=== PATIENT | male | born 1955 | race African-American/Black ===

== ENCOUNTER 2017-03-13 07:20 | Inpatient (IN) ==
--- NOTE | 2017-03-08 13:10 | EKG Report ---
Stationary ECG Study [facility] Test Date: 03/08/2017 1:11:46 PM Pat Name: SAPPHIRE TORRES Department: Room: Gender: M Pension Administrator: KEENAN HAQUE : 1955 Requested by: John Menchaca Order Number: [id number] Reading MD: DENZEL VELA Intervals Morgan Rate: 62 P: 81 LA: 137 QRS: 85 QRSD: 102 T: 72 QT: 420 QTc: 425 Interpretive Statements SINUS [id number] VOLTAGE CRITERIA FOR LVH EARLY REPOLARIZATION Electronically Signed On 03-11-17 13:28:54 CDT by DENZEL VELA [email or web address]
[2017-03-08 13:11] LABS: Basophils % 0.4 % (0.0-0.8); Hematocrit 34.2 VOL% (42.0-52.0); Hemoglobin 11.6 GM/DL (14.0-18.0); Immature Granulocytes % 0.3 %; Immature Granulocytes Absolute 0.02 #; Lymphocytes # 2.8 10*3/uL (1.4-4.0); Lymphocytes % 35.6 % (21.2-54.2); Mean Corpuscular HGB Conc 33.9 GM/DL (32-36); Mean Corpuscular Hemoglobin 25 PG (27-34); Mean Corpuscular Volume 74.3 FL (87-102); Mean Platelet Volume 11.3 FL (9.6-12.0); Monocytes % 12.5 % (1.7-12.7); Neutrophils % 51.2 % (38.7-73.9); Platelet Count 215 T/CUMM (130-400); Red Cell Distribution Width 15.9 % (9.3-17.3); White Blood Count 7.9 T/CUMM (4-12)
[2017-03-08 13:46] LABS: Calcium 9.1 MG/DL (8.5-10.1); Osmolality,Calculated 277.4 MOS/KG (273-304)
[2017-03-13] MEDS ORDERED: MIDAZOLAM 2 MG/2 ML VIAL IV ONE (08:23)
[2017-03-13] MEDS ORDERED: DIAZEPAM 5 MG TABLET PO ONE ×2 (08:23)
[2017-03-13] MEDS ORDERED: fentaNYL 100 MCG/2 ML VIAL IV ONE (08:23)
--- NOTE | 2017-03-13 08:27 | IR History and Physical Update ---
IR Pre-Procedure - History and Physical H&P was reviewed, the patient examined and there: are no changes in the patients condition since last H&P was completed. Reason for procedure:: 61-year-old male, smoker, with severe bilateral peripheral arterial disease. Wrist pain. Chronic wound left foot. CT angiogram shows severe distal bilateral SFA, popliteal and tibial peroneal occlusive disease. Presents today for formal arteriogram with option to stent or angioplasty. - Dictation Physical: refer to scanned H&P - Physical Exam Vital Signs: Last Vital Signs Temp 99.7 F H 03/13/17 07:49 Pulse 82 03/13/17 07:49 Resp 18 03/13/17 07:49 BP 176/107 03/13/17 07:49 Pulse Ox 98 03/13/17 07:49 Mental Status: alert and oriented Extremity: other (Pulses bilateral feet. Both feet are warm and dry. Chronic wound lateral left forefoot.) Extremity: Present: capillary refill more than 3 seconds, warm, dry to touch Peripheral pulses: 0: Popliteal (R), Popliteal (L), Dorsalis Pedis (R), Dorsalis Pedis (L), Posterior Tibialis (R), Posterior Tibialis (L), 2+: Common Femoral (R), Common Femoral (L) Wounds: Lateral left foot adjacent to the fifth MTP joint. - Sedation IR anesthesia plan for sedation: minimal ASA Class: III - Risks Risks: Procedures explained. Risks discussed include, but not limited to, the following:[Pain, bleeding, thrombosis] All questions answered. The following alternatives were discussed:[None] Risks and benefits discussed with: patient Consent obtained from: patient Assessment and Plan - Time spent with patient Time spent with patient: Less than 30 minutes (1) Peripheral arterial disease Status: Chronic Assessment and plan: Plan abdominal aortogram with runoff. Possible stent or angioplasty, although the CT angiogram looks discouraging from a treatment standpoint. Current Visit: Yes
[2017-03-13] MEDS ORDERED: SODIUM CHLORIDE 0.45% 1,000 ML IV SCH (08:30)
[2017-03-13] MEDS ORDERED: ceFAZolin 1,000 MG VIAL ONE (08:39)
[2017-03-13] MEDS ORDERED: DIAZEPAM 5 MG TABLET ONE (08:39)
[2017-03-13] MEDS ORDERED: SODIUM CHLORIDE 0.9% 50 ML IV ONE (08:40)
[2017-03-13 08:55] LABS: PT Patient Result 10.9 SECS; Partial Thromboplastin Time 33.4 SECS (0-40)
[2017-03-13] MEDS ORDERED: HEPARIN/NACL 0.9% 2 UNITS/ML 2,000 ML IV ONE (10:46)
[2017-03-13] MEDS ORDERED: MIDAZOLAM 2 MG/2 ML VIAL ONE (10:55)
[2017-03-13] MEDS ORDERED: fentaNYL 100 MCG/2 ML VIAL ONE (10:55)
--- NOTE | 2017-03-13 11:43 | Post Interventional Procedure ---
Pre-op diagnosis: PAD Post-op diagnosis: same Procedure: Abdominal aortogram w/ BLE runoff Contrast: Visi 320, 110 cc Flouroscopy: 1.2 min Radiologist: Francisco Fierro Anesthesia: local, conscious sedation (versed 1 mg, fentanyl 50 mcg) Total Sedation Time: 1 min Specimens: none sent Estimated blood loss: none Complications: none Condition: stable Description/Findings: See radiology report. Assessment and Plan - Time spent with patient Time spent with patient: Less than 30 minutes (1) Peripheral arterial disease Status: Chronic Assessment and plan: Plan abdominal aortogram with runoff. Possible stent or angioplasty, although the CT angiogram looks discouraging from a treatment standpoint. A: Severe PAD, BLE SFA occlusions, Bilat popliteal artery occlusions Current Visit: Yes
--- NOTE | 2017-03-13 14:48 | Interventional Radiology Rpt ---
IR angio abdominal w serial, IR angio Ext BI Indication: Severe peripheral arterial disease, nonhealing wound lateral left foot, bilateral rest pain. Nonpalpable pulses in the popliteal arteries and further distal both feet. ABDOMINAL AORTOGRAM WITH BILATERAL LOWER EXTREMITY RUNOFF Description: A formal timeout was performed. Maximum sterile barrier technique used. The right groin was prepped and draped in a sterile fashion. 5 cc 1% lidocaine was injected. The right common femoral artery was accessed with micropuncture needle. Using Seldinger technique, a flush catheter was situated in the suprarenal abdominal aorta. Aortography was performed. The catheter was withdrawn to the aortic bifurcation and bilateral lower extremity runoff arteriograms performed. The catheter and sheath were removed. Hemostasis was achieved with successfully deployed Perclose device and manual compression. Patient tolerated the procedure well. Conscious sedation: Under physician supervision, Versed 1 mg, fentanyl 50 mcg were administered intravenously for conscious sedation. Vital signs, including pulse oximetry, heart rate and blood pressure, continuously monitored by nursing present in the room. Physicians spent 10 minutes [id number] sedation time with the patient. Contrast: Visipaque 320, 110 cc. Fluoroscopy: 1.2 minutes, 273 captured images. Impression: 1. No significant stenosis or aneurysmal change of the aorta, common iliac or external iliac arteries present. Irregular and eccentric plaque deposition at the origin of both common femoral arteries noted, resulting in maximum of 50% diameter stenosis. This narrowing extends into the ostium of both superficial femoral arteries, still estimated at 50% on the right but closer to 75% on the left. 2. There is chronic total occlusion of the distal right SFA at Luis's canal with some minimal reconstitution of the popliteal artery [id number], and then almost immediate reocclusion of popliteal artery at the level of the knee joint. In the right calf, the tibioperoneal trunk is occluded, and there is some mid calf reconstitution of the peroneal artery which then occludes above the ankle giving off small branch vessels to feed the foot. 3. Below Luis's canal, there is total occlusion of the left SFA with irregular filling of the ejdvp-etf-bndm popliteal artery, which also occludes above the knee joint. A large geniculate branch then bridges the knee joint and gives off small branches that fill a otherwise occluded tibioperoneal trunk. In the left calf, the peroneal artery is the only patent vessel after reconstitution via geniculate branches, and provides some inflow of the left foot. PROCEDURE INTERPRETED AT [facility] Final Report Signed by: Francisco Fierro M.D.
--- NOTE | 2017-03-13 17:34 | General Surgery Progress Note ---
Assessment and Plan (1) Ischemic rest pain of lower extremity Status: Acute Assessment and plan: Mr. Mojica is ischemic rest pain with bilateral severe peripheral vascular occlusive disease. I think it unlikely that we have any options that would provide revascularization Dr. Fierro and I are not impressed that we are likely to improve perfusion into the foot I have asked Dr. Valencia if he will review it and determine if he thinks that he has something offered. I discussed this with Mr. . Ms. Mojica and informed then and without revascularization that amputation is our only other option and that be offered when he feels he is ready to undergo that. We also discussed the other leg which is not really in any better shape other than just symptomatically it is not causing as much pain. Current Visit: Yes Subjective Patient reports: Present: other (Still with ischemic rest pain in the left foot. ) Exam - Constitutional Vitals: Period Temp Pulse Resp BP Sys/Luu Pulse Ox Last 24 Hr 98.4 F-99.7 F 80-102 15-20 159-213/89-118 94-100 General appearance: mild distress, under weight - Expanded Left Lower Neuro vascular tendon exam: Present: pulse deficit (Continues to show chronic ischemia of his left foot with ongoing wrist pain.) Results - Labs CBC & BMP: 03/08/17 13:00 03/08/17 13:00 - Diagnostic Findings Procedure: X-ray: pending (Arteriogram shows occlusion of the popliteal and tibial anterior tibial vessels there is a patent peroneal to the ankle but there does not appear to be significant runoff anywhere into the foot. Dr. Fierro did not feel that he had any options to offer for revascularization I am not enthused about a isolated bypass to the peroneal artery without collateral flow into the foot. I am asking Dr. Valencia to review it and determine if he thinks there is any options he has to offer on for revascularization standpoint. )
--- NOTE | 2017-03-14 09:44 | Event Note ---
Mr. Mojica continues to have ischemic rest pain in the left leg he does not have it on the right honestly I do not see much difference in the angiographic appearance of the right leg versus the left. Dr. Valencia is going to review the arteriogram and determine if he feels there is any hope of revascularization from his approach. If he is not able to improve the perfusion all I have reasonable to offer would be a below-knee amputation which based on the characteristics of the tissue of his lower leg I think has a reasonable chance of healing. Again I would not recommend that surgery until Mr. Mojica feels that it is the only option that he wants to take
--- NOTE | 2017-03-14 17:19 | Cardiology Consult Note ---
Assessment and Plan (1) Peripheral arterial disease Status: Chronic Assessment and plan: 1. 61-year-old BM recent smoker (quit 2 weeks ago by his report) with 2-3 years of worsening left calf claudication and nonhealing foot ulcer now with rest pain intermittently. 2. Agree with baby aspirin and high intensity statin therapy 3. I reviewed his films and he has bilateral diffuse severe disease including left popliteal occlusion with very poor runoff and diffuse tibial disease 4. Given the high likelihood he will need amputation without revascularization , will plan for angiography and attempt intervention on his left popliteal segment . I would defer to primary service whether to keep in the hospital order letting go and bring him back . I discussed with the patient the risks and benefits of peripheral angiography and intervention including but not limited to: , stroke, heart attack, vascular damage, reaction to medicine or dye, bleeding requiring blood transfusion, failure of the procedure, and the possible need for planned or emergency surgery. I have answered all the patient's questions regarding the procedure, and the patient is agreeable to proceed. Current Visit: Yes (2) Ischemic rest pain of lower extremity Status: Acute Current Visit: Yes History of Present Illness - Consult Narrative History of present illness: Mr. Mojica is a 61 year old male who reports having an ulcer on his left lateral foot for 2-3 years. He has had claudication pain on the left during that time as well, but is worsening. He now has some rest pain and get some relief with hanging his leg down. He reports that it throbs when he stands for too long. Angiography showed popliteal occlusion with diffuse severe tibial disease and very poor runoff on the left. CC: John Menchaca MD - Home Medications and Allergies Home Medications: Home Medications Medication Instructions Recorded Confirmed Type Atorvastatin [Lipitor] 40 mg PO BEDTIME 03/10/17 03/13/17 History Cilostazol [Pletal] 50 mg PO BID 03/10/17 03/13/17 History HYDROcodone/ACETAMIN 7.5-325 1 tablet PO Q6HR PRN 03/10/17 03/13/17 History [[place] 7.5-325] amLODIPine [Norvasc] 10 mg PO DAILY 03/10/17 03/13/17 History hydroCHLOROthiazide 25 mg PO DAILY 03/10/17 03/13/17 History [Hydrochlorothiazide] Allergies/Adverse Reactions: Allergies Allergy/AdvReac Type Severity Reaction Status Date / Time No Known Allergies Allergy Verified 03/13/17 07:40 Medical,Surgical,& Family Hx - Medical History Cardio: History of: Hypertension, PVD (03/13/17 AF Arteriogram) Neurology: No history of: Seizures HEENT: No history of: Eye Problem, Dental Problems Endocrine: History of: Dyslipidemia Respiratory: No history of: Respiratory Problems (No Flu Vac) Other: History of: Skin Problems (Non Healing Wound Lt Foot) No history of: Anesthesia Reactions - Surgical History Cardiac Surgeries: Sugical HX of: Femoral-Popliteal Bypass Graft HEENT Surgeries: Patient denies: Eye Surgery, Tonsilectomy & Adenoidectomy - Social History Smoking Status: Current every day smoker Frequency of Alcohol Use: Frequently Type of Drug Use: Unknown Physical Examination Vital Signs Temp Pulse Resp BP Pulse Ox 99.7 F H 82 18 176/107 98 03/13/17 07:49 03/13/17 07:49 03/13/17 07:49 03/13/17 07:49 03/13/17 07:49 General: Present: No Apparent Distress, Cachectic Cardiac: Present: Reg Rate and Rhythm. Absent: Diastolic Murmur, Gallop Lungs: Present: Normal Breath Sounds. Absent: Bibasilar Rales Abdomen: Present: Soft Extremities: Present: Other (Absent pedal pulse with small tender ulcer left lateral foot plantar aspect.). Absent: Edema Result/EKG - Labs CBC & BMP: 03/08/17 13:00 03/08/17 13:00
[2017-03-14 18:09] LABS: Basophils % 0.2 % (0.0-0.8); Hematocrit 31.6 VOL% (42.0-52.0); Hemoglobin 10.8 GM/DL (14.0-18.0); Immature Granulocytes % 0.2 %; Immature Granulocytes Absolute 0.02 #; Lymphocytes # 1.6 10*3/uL (1.4-4.0); Lymphocytes % 17.9 % (21.2-54.2); Mean Corpuscular HGB Conc 34.2 GM/DL (32-36); Mean Corpuscular Hemoglobin 25 PG (27-34); Mean Corpuscular Volume 73.3 FL (87-102); Monocytes # 1.5 10*3/uL (0.11-0.8); Monocytes % 16.3 % (1.7-12.7); Neutrophils # 5.9 10*3/uL (1.4-7.4); Neutrophils % 65.4 % (38.7-73.9); Platelet Count 243 T/CUMM (130-400); Red Blood Count 4.31 MC/CUMM (3.8-5.5); Red Cell Distribution Width 14.7 % (9.3-17.3)
[2017-03-14 18:24] LABS: INR 1.1; Partial Thromboplastin Time 34.6 SECS (0-40)
[2017-03-14 18:28] LABS: Eosinophils 1 % (0-10); Lymphocytes 13 % (20-55); Segmented Neutrophils 67 % (50-85); Total Cells Counted 100
[2017-03-14 18:29] LABS: Hypochromasia Slight; Platelet Estimate Adequate; Target Cells Few
[2017-03-14 18:44] LABS: Alanine Aminotransferase 12 U/L (16-61); Albumin 2.9 G/DL (3.4-5.0); Alkaline Phosphatase 135 U/L (45-117); Aspartate Amino Transferase 14 U/L (0-37); Bilirubin,Total < 0.39 MG/DL (0.2-1.0); Blood Urea Nitrogen 9 MG/DL (7-18); Calcium 8.6 MG/DL (8.5-10.1); Glucose 116 MG/DL (74-106); Osmolality,Calculated 274.7 MOS/KG (273-304); Potassium 3.4 MMOL/L (3.5-5.1); Sodium 138 MMOL/L (136-145); Total Protein 6.5 G/DL (6.4-8.3)
--- NOTE | 2017-03-15 09:33 | Event Note ---
Mr. Mojica has continued ischemic rest pain and Dr. Valencia is going to try to improve perfusion tomorrow with atherectomy and possible distal angioplasty.
[2017-03-15] MEDS ORDERED: ENOXAPARIN 40 MG/0.4 ML SYRINGE SUBCUT SCH ×2 (15:30)
[2017-03-15] MEDS ORDERED: POTASSIUM CHLORIDE RIDER 10 MEQ in PREMIX 1 EACH IV PRN (16:52)
[2017-03-15] MEDS ORDERED: MAGNESIUM SULF RIDER 2 GM in PREMIX 1 EACH IV PRN (16:52)
[2017-03-15] MEDS ORDERED: ASPIRIN CHEW 81 MG TABLET PO ONE (16:56)
[2017-03-15] MEDS: ROSUVASTATIN 20 MG TABLET PO SCH (21:43)
[2017-03-16] MEDS ORDERED: DIAZEPAM 5 MG TABLET PO ONE (06:00)
[2017-03-16] MEDS ORDERED: diphenhydrAMINE CAP 25 MG CAPSULE PO ONE (06:00)
[2017-03-16] MEDS ORDERED: LIDOCAINE 1% 20 ML VIAL ONE (07:49)
--- NOTE | 2017-03-16 07:55 | Event Note ---
Late entry: I examined and interviewed Mr. Mojica on March 15, 2017 but did not document the note. At that time his clinical status was unchanged still having pain in his foot and lower leg intermittently at rest with left foot ulcer. I again discussed with him the logistics of angiography and attempted percutaneous intervention on his diffusely diseased/occluded left distal SFA/pedal vessels. I answered all his questions were the procedure. General: Thin BM no acute distress alert and oriented HEENT: Supple without JVD CV: Regular rhythm and rate Respiratory: Clear to auscultation with some increased expiratory phase Abdomen: Nontender Extremities: No edema with absent pedal pulse, left foot edema with lateral ulcer. Impression: Critical limb ischemia with left distal SFA/popliteal occlusion and very poor runoff with suggestion of diffuse severe tibial disease Recommendations: Angiography March 08, 2017 a.m. with attempt intervention/ probable laser atherectomy from right femoral approach possibly with left pedal access.
[2017-03-16] MEDS ORDERED: HYDROmorphone 2 MG/1 ML VIAL ONE (08:05)
[2017-03-16] MEDS ORDERED: MIDAZOLAM 2 MG/2 ML VIAL ONE (08:09)
[2017-03-16] MEDS ORDERED: HEPARIN 5,000 UNIT/1 ML VIAL ONE (08:14)
[2017-03-16] MEDS: ASPIRIN CHEW 81 MG TABLET PO SCH (09:08)
--- NOTE | 2017-03-16 13:58 | Event Note ---
We have been unable to revascularize Mr. Mojica left lower leg and he persists with significant ischemic rest pain that has been ongoing for weeks and a nonhealing ulcer of the left foot. I discussed this in detail with Mr. Mojica his daughter and sister explaining the nature of the ischemic disease and the treatment options available. I believe there is a reasonable hope for below -knee amputation healing based on the quality of the skin and muscle in that area. I have explained to him the potential for nonhealing falling postoperatively the need for rehab and the time involved in obtaining a below- knee prosthesis. And I gave the option of delay with continued wound care but offered no reasonable hope of improvement in pain or healing of the ulcer. He understands the risk of nonhealing infection and bleeding which he understands and accepts wishes to proceed with surgery tomorrow and I will schedule a left below-knee amputation for tomorrow
[2017-03-16] MEDS: ROSUVASTATIN 20 MG TABLET PO SCH (20:47)
[2017-03-17] MEDS: LACTATED RINGERS 1,000 ML IV SCH ×3 (08:15→19:48)
[2017-03-17] MEDS ORDERED: VANCOMYCIN 500 MG VIAL ONE (08:26)
[2017-03-17] MEDS ORDERED: ceFAZolin 1,000 MG VIAL ONE (08:55)
[2017-03-17] MEDS: ASPIRIN CHEW 81 MG TABLET PO SCH (10:11)
--- NOTE | 2017-03-17 10:18 | Operative Note ---
Date of procedure: 03/17/17 Procedure: Dr. Menchaca operative report clearance Yunior. Surgeon: Nikolai Anesthesia: Garry epidural and MAC Preoperative diagnosis: On ischemic gangrene of left foot Postoperative diagnosis: Same Procedure: Left below-knee amputation Indications for the procedure: Mr. Mojica is a 61-year-old man with ischemic gangrene chronic ischemic pain of the left foot we have been unable to provide any revascularization I have offered below-knee amputation of explained the alternatives risks and complications which he understands and accepts Description of the procedure: Patient received epidural anesthesia and sedation his left leg is prepped with ChloraPrep and draped in the standard fashion leg is marked for posterior flap type of below-knee amputation skin incision is made with scalpel cautery was used to divide muscle bundles in the anterior tibial compartment and somewhat of the medial compartment reciprocating saw was used to divide the fibula approximately an inch higher than the tibia tibias divided smoothed the posterior flap was completed with a large amputation knife. There is minimal bleeding from the popliteal and peroneal arteries modestly bleeding these are controlled with 020 silks ligatures the muscle level however shows good perfusion and contraction the muscle was trimmed somewhat leg is irrigated the posterior fascia and anterior fascia are brought together with interrupted 0 Vicryl running 2-0 Monocryl was used to close the subcu skin clips used to close skin there is no tension on the flap it about appears to be well perfused posterior splint is applied blood loss is approximately 200 cc sponge needle and sponge counts correct and the patient taken to recovery in stable condition Surgeon / Physician: John Menchaca Results - Labs CBC & BMP: 03/14/17 17:51 03/14/17 17:51 Discharge Plan - Discharge Medications No Action hydroCHLOROthiazide [Hydrochlorothiazide] 25 mg PO DAILY Cilostazol [Pletal] 50 mg PO BID Atorvastatin [Lipitor] 40 mg PO BEDTIME amLODIPine [Norvasc] 10 mg PO DAILY HYDROcodone/ACETAMIN 7.5-325 [[place] 7.5-325] 1 tablet PO Q6HR PRN PRN Reason: Pain - Follow Up or Referral - Forms/Instructions
[2017-03-17] MEDS ORDERED: ONDANSETRON 4 MG/2 ML VIAL IV PRN ×2 (10:21→10:34)
[2017-03-17] MEDS ORDERED: BISACODYL 5 MG TABLET PO PRN (10:21)
[2017-03-17] MEDS ORDERED: diphenhydrAMINE 50 MG/1 ML VIAL IV PRN (10:34)
[2017-03-17] MEDS ORDERED: KETOROLAC 60 MG/2 ML VIAL IM ONE (10:34)
[2017-03-17] MEDS ORDERED: diphenhydrAMINE CAP 25 MG CAPSULE PO PRN (10:34)
[2017-03-17] MEDS ORDERED: fentaNYL 100 MCG/2 ML VIAL ONE (10:43)
[2017-03-17] MEDS ORDERED: MIDAZOLAM 2 MG/2 ML VIAL ONE (10:44)
[2017-03-17] MEDS ORDERED: LIDOCAINE MPF 2% /EPI 20 ML VIAL ONE (10:44)
[2017-03-17] MEDS: fentaNYL 2 MCG/ROPIV 0.2% EPID 150 ML EPIDURAL SCH (11:39)
[2017-03-17] MEDS: amLODIPine 10 MG TABLET PO SCH (12:08)
[2017-03-17] MEDS: KETOROLAC 10 MG TABLET PO PRN (12:08)
[2017-03-17] MEDS: CILOSTAZOL 50 MG TABLET PO SCH ×2 (12:09→21:44)
[2017-03-17 13:36] LABS: Basophils % 0.2 % (0.0-0.8); Hematocrit 28.8 VOL% (42.0-52.0); Hemoglobin 9.7 GM/DL (14.0-18.0); Immature Granulocytes % 0.3 %; Immature Granulocytes Absolute 0.03 #; Lymphocytes # 1.8 10*3/uL (1.4-4.0); Lymphocytes % 15.6 % (21.2-54.2); Mean Corpuscular HGB Conc 33.7 GM/DL (32-36); Mean Corpuscular Hemoglobin 25 PG (27-34); Mean Corpuscular Volume 73.1 FL (87-102); Mean Platelet Volume 10.8 FL (9.6-12.0); Monocytes # 1.8 10*3/uL (0.11-0.8); Monocytes % 15.7 % (1.7-12.7); Neutrophils # 7.9 10*3/uL (1.4-7.4); Neutrophils % 68.2 % (38.7-73.9); Platelet Count 326 T/CUMM (130-400); Red Blood Count 3.94 MC/CUMM (3.8-5.5); White Blood Count 11.5 T/CUMM (4-12)
[2017-03-17 13:54] LABS: Calcium 8.5 MG/DL (8.5-10.1); Magnesium 1.4 MG/DL (1.8-2.4); Potassium 3.4 MMOL/L (3.5-5.1)
--- NOTE | 2017-03-17 14:21 | Anesthesia Post-Op ---
Anesthesia Post OP - Post Ansesthetic Evaluation Patient seen in post op: Yes Resp: within normal limits CV: within normal limits Mental: within normal limits Temp: within normal limits Jmgw-Rf-Zmpvkdbss: within normal limits Nausea and Vomiting: within normal limits Pain: within normal limits
--- NOTE | 2017-03-17 15:17 | Cardiology Progress Note ---
Assessment and Plan (1) Peripheral arterial disease Status: Chronic Assessment and plan: 1. 61-year-old BM recent smoker (quit 2 weeks ago by his report) with 2-3 years of worsening left calf claudication and nonhealing foot ulcer now with rest pain intermittently. 2. Agree with baby aspirin and high intensity statin therapy 3. I reviewed his films and he has bilateral diffuse severe disease including left popliteal occlusion with very poor runoff and diffuse tibial disease 4. Given the high likelihood he will need amputation without revascularization , will plan for angiography and attempt intervention on his left popliteal segment . I would defer to primary service whether to keep in the hospital order letting go and bring him back . I discussed with the patient the risks and benefits of peripheral angiography and intervention including but not limited to: , stroke, heart attack, vascular damage, reaction to medicine or dye, bleeding requiring blood transfusion, failure of the procedure, and the possible need for planned or emergency surgery. I have answered all the patient's questions regarding the procedure, and the patient is agreeable to proceed. March 17, 2017: 1. 61-year-old recent smoker status post left BKA this morning doing well clinically. 2. His right groin excised is without bleeding bruit or hematoma, he will need to avoid squatting strain or lifting for the next 6 days. 3. Is reasonable to put him back on his Lipitor 40 as he has a supply of those and will follow up with [facility]. 4. Agree with continuing baby aspirin. 5. Hemodynamic is stable with normal creatinine noted this morning and mild drop in hematocrit postoperatively. 6. As he has follow-up with Dr. Menchaca, I will be happy to see him on an as- needed basis; I will sign off. Current Visit: Yes (2) Ischemic rest pain of lower extremity Status: Acute Current Visit: Yes Cardiology - PN: Subj Interval history: Mr. Mojica is no complaints after his surgery. He has no chest discomfort or shortness of breath. He has no complaints his right groin access site. He has not had any bleeding. Exam (Progress Note) - Constitutional Vitals: Period Temp Pulse Resp BP Sys/Luu Pulse Ox Last 24 Hr 98.2 F-99.6 F 77-112 16-18 104-137/63-85 95-100 General appearance: no acute distress, under weight - Head Head exam: Present: normal inspection, normocephalic, atraumatic - Neck Neck exam: Present: normal inspection - Respiratory Respiratory exam: Present: clear to auscultation bilaterally - Cardiovascular Cardiovascular exam: Present: regular rate and rhythm. Absent: diastolic murmur , rubs - GI/Abdominal GI/Abdominal exam: Present: soft. Absent: tenderness - Extremities Exam Extremities exam: Present: other (And his left lower extremity status post amputation). Absent: edema Result/EKG - Labs CBC & BMP: 03/17/17 13:27 03/17/17 13:27 Labs: Laboratory Results - last 24 hr 03/17/17 03/17/17 13:27 13:27 WBC 11.5 RBC 3.94 Hgb 9.7 L Hct 28.8 L MCV 73.1 L MCH 25 L MCHC 33.7 RDW 14.0 Plt Count 326 D MPV 10.8 Neut % (Auto) 68.2 Lymph % (Auto) 15.6 L [place] % (Auto) 15.7 H Eos % (Auto) 0.0 Baso % (Auto) 0.2 Neut # (Auto) 7.9 H Lymph # (Auto) 1.8 [place] # (Auto) 1.8 H Eos # (Auto) 0.0 Baso # (Auto) 0.0 Immature Gran % 0.3 Nucleated RBC % 0.0 Immature Gran # 0.03 Nucleated RBCs # 0.00 Immature Plt Fraction 0.0 Sodium 136 Potassium 3.4 L Chloride 100 Carbon Dioxide 31 Anion Gap 8.4 BUN 10 Creatinine 0.70 GFR Calculation 115 BUN/Creatinine Ratio 14.00 Glucose 118 H Calculated Osmolality 271.0 L Calcium 8.5 Magnesium 1.4 L Quality Measures - VTE Contraindication to Pharmacological VTE Prophylaxis: Continuous Epidural Infusion
[2017-03-17 16:05] LABS: Lymphocytes 19 % (20-55); Microcytosis 1+; Ovalocytes Few; Platelet Estimate Normal; Poikilocytosis 1+; Segmented Neutrophils 71 % (50-85); Target Cells Few; Tear Drop Cells Few; Total Cells Counted 100
[2017-03-17] MEDS ORDERED: KETOROLAC 30 MG/1 ML VIAL IM PRN (17:00)
[2017-03-17] MEDS: ROSUVASTATIN 20 MG TABLET PO SCH (21:44)
[2017-03-17] MEDS: ATORVASTATIN 40 MG TABLET PO SCH (21:44)
[2017-03-18 02:14] LABS: Basophils % 0.2 % (0.0-0.8); Hematocrit 27.6 VOL% (42.0-52.0); Hemoglobin 9.4 GM/DL (14.0-18.0); Immature Granulocytes % 0.4 %; Immature Granulocytes Absolute 0.05 #; Lymphocytes # 1.9 10*3/uL (1.4-4.0); Lymphocytes % 13.8 % (21.2-54.2); Mean Corpuscular HGB Conc 34.1 GM/DL (32-36); Mean Corpuscular Hemoglobin 25 PG (27-34); Mean Corpuscular Volume 72.4 FL (87-102); Mean Platelet Volume 11.8 FL (9.6-12.0); Monocytes # 2.1 10*3/uL (0.11-0.8); Monocytes % 14.8 % (1.7-12.7); Neutrophils # 9.8 10*3/uL (1.4-7.4); Neutrophils % 70.8 % (38.7-73.9); Platelet Count 322 T/CUMM (130-400); Red Blood Count 3.81 MC/CUMM (3.8-5.5); Red Cell Distribution Width 14.1 % (9.3-17.3); White Blood Count 13.9 T/CUMM (4-12)
[2017-03-18 02:39] LABS: Calcium 8.3 MG/DL (8.5-10.1); Osmolality,Calculated 272.8 MOS/KG (273-304); Potassium 3.8 MMOL/L (3.5-5.1)
[2017-03-18] MEDS: LACTATED RINGERS 1,000 ML IV SCH (04:01)
[2017-03-18] MEDS: fentaNYL 2 MCG/ROPIV 0.2% EPID 150 ML EPIDURAL SCH ×2 (05:49→23:22)
[2017-03-18] MEDS: PANTOPRAZOLE 40 MG TABLET PO SCH (09:39)
[2017-03-18] MEDS: CILOSTAZOL 50 MG TABLET PO SCH ×2 (09:39→20:14)
[2017-03-18] MEDS: ASPIRIN CHEW 81 MG TABLET PO SCH (09:39)
[2017-03-18] MEDS: amLODIPine 10 MG TABLET PO SCH (09:39)
--- NOTE | 2017-03-18 10:38 | Event Note ---
Status post left BKA. No complaints. The dressing is dry and intact. White blood cell count 13.9. No changes. Continue current care.
--- NOTE | 2017-03-18 12:23 | Event Note ---
Epidural Management day #2 Pt without complaints at present. Comfortable. C/o generalized itching during night, resolved at present. Epidural infusing without complications.
[2017-03-18] MEDS: ATORVASTATIN 40 MG TABLET PO SCH (20:14)
[2017-03-18] MEDS: ROSUVASTATIN 20 MG TABLET PO SCH (20:14)
[2017-03-18] MEDS: KETOROLAC 10 MG TABLET PO PRN (22:50)
[2017-03-19] MEDS: PANTOPRAZOLE 40 MG TABLET PO SCH (09:29)
[2017-03-19] MEDS: CILOSTAZOL 50 MG TABLET PO SCH ×2 (09:29→20:52)
[2017-03-19] MEDS: ASPIRIN CHEW 81 MG TABLET PO SCH (09:29)
[2017-03-19] MEDS: amLODIPine 10 MG TABLET PO SCH (09:32)
[2017-03-19] MEDS: LACTATED RINGERS 1,000 ML IV SCH ×2 (09:33→12:56)
--- NOTE | 2017-03-19 11:12 | Event Note ---
T-max 102.4. Vital signs stable. Patient says he is doing very well. He has no complaints. He is tolerating a diet. He has no nausea or vomiting. His stump dressing is clean and dry. White blood cell count yesterday was slightly elevated. Will recheck CBC in the morning.
[2017-03-19] MEDS: fentaNYL 2 MCG/ROPIV 0.2% EPID 150 ML EPIDURAL SCH (12:56)
--- NOTE | 2017-03-19 13:40 | Anesthesia Post-Op ---
Anesthesia Post OP - Post Ansesthetic Evaluation Patient seen in post op: Yes Resp: within normal limits CV: within normal limits Mental: within normal limits Temp: within normal limits Iexh-Ig-Wavdevfzl: within normal limits Nausea and Vomiting: within normal limits Pain: within normal limits Other:: follow up on day [address] for post-op pain control. pt pain is controlled. catheter site has no redness or edema.
[2017-03-19] MEDS: ROSUVASTATIN 20 MG TABLET PO SCH (20:52)
[2017-03-19] MEDS: ATORVASTATIN 40 MG TABLET PO SCH (20:52)
[2017-03-20 05:56] LABS: Basophils % 0.2 % (0.0-0.8); Hematocrit 25.9 VOL% (42.0-52.0); Hemoglobin 8.9 GM/DL (14.0-18.0); Immature Granulocytes % 0.4 %; Immature Granulocytes Absolute 0.05 #; Lymphocytes # 2.2 10*3/uL (1.4-4.0); Lymphocytes % 15.9 % (21.2-54.2); Mean Corpuscular HGB Conc 34.4 GM/DL (32-36); Mean Corpuscular Hemoglobin 25 PG (27-34); Mean Corpuscular Volume 71.5 FL (87-102); Mean Platelet Volume 11.7 FL (9.6-12.0); Monocytes # 2.4 10*3/uL (0.11-0.8); Monocytes % 17.4 % (1.7-12.7); Neutrophils # 9.2 10*3/uL (1.4-7.4); Neutrophils % 66.1 % (38.7-73.9); Platelet Count 388 T/CUMM (130-400); Red Blood Count 3.62 MC/CUMM (3.8-5.5); Red Cell Distribution Width 14.1 % (9.3-17.3); White Blood Count 13.9 T/CUMM (4-12)
[2017-03-20 06:40] LABS: Elliptocytes Few; Eosinophils 2 % (0-10); Giant Platelets Few; Hypochromasia 1+; Lymphocytes 18 % (20-55); Platelet Estimate Adequate; Segmented Neutrophils 62 % (50-85); Target Cells Few; Total Cells Counted 100
[2017-03-20 06:41] LABS: Microcytosis Slight
[2017-03-20] MEDS: amLODIPine 10 MG TABLET PO SCH (08:48)
[2017-03-20] MEDS: ASPIRIN CHEW 81 MG TABLET PO SCH (08:48)
[2017-03-20] MEDS: CILOSTAZOL 50 MG TABLET PO SCH ×2 (08:48→20:18)
[2017-03-20] MEDS: PANTOPRAZOLE 40 MG TABLET PO SCH (08:48)
[2017-03-20] MEDS ORDERED: HYDROmorphone 2 MG/1 ML VIAL IV PRN ×2 (10:23)
--- NOTE | 2017-03-20 10:27 | Event Note ---
Mr. Mojica is run fever over the weekend and I taken down his wound dressing today and it actually looks quite good there is no sign of ischemia erythema induration or infection of significant drainage. He does not appear to be any in any distress. I am going to go ahead and remove the epidural and will continue to work toward physical therapy. He has not had a Francois catheter so there is not much risk of infection there.
--- NOTE | 2017-03-20 11:56 | Event Note ---
Epidural removed with blue tip intact, pt. tolerated well
[2017-03-20] MEDS: ZALEPLON 5 MG CAPSULE PO PRN (20:18)
[2017-03-20] MEDS: ROSUVASTATIN 20 MG TABLET PO SCH (20:19)
[2017-03-20] MEDS: ATORVASTATIN 40 MG TABLET PO SCH (20:19)
[2017-03-21] MEDS: ASPIRIN CHEW 81 MG TABLET PO SCH (08:17)
[2017-03-21] MEDS: amLODIPine 10 MG TABLET PO SCH (08:18)
[2017-03-21] MEDS: CILOSTAZOL 50 MG TABLET PO SCH ×2 (08:18→20:22)
[2017-03-21] MEDS: PANTOPRAZOLE 40 MG TABLET PO SCH (08:18)
--- NOTE | 2017-03-21 09:20 | Pathology Report from [facility] ---
[facility] [place] [id number] PATIENT NAME : Jr. Torres Clarence ORDERING DR : ANT LEONARD MD CLINICAL HX: Severe PAD, bilateral; chronic wound LT foot POST-OP DX: Same SPECIMEN INFO: LT B-K GROSS DESCRIPTION: Received fresh labeled SAPPHIRE TORRES is a 37.0 cm left leg below the knee amputation. The skin is brown and hairless with a 0.7 x 0.5 cm ulceration noted along the lateral side of the 5th toe. The posterior tibial artery is focally atherosclerotic and markedly calcified. Sections submitted A- Artery following decalcification, B-Ulcer. DIAGNOSIS FOR SAPPHIRE TORRES JR.: LEG, LEFT, [id number] AMPUTATION: Gangrene secondary to atherosclerotic vascular disease. COLLECTED DATE: 03/17/2017 [facility] [place]: 03/20/2017 ELECTRONICALLY SIGNED BY: Wayne Black III, M.D. 03/20/2017 - 11:04:45 PRIMO
--- NOTE | 2017-03-21 10:53 | Event Note ---
Mr. Mojica is afebrile heart rate is come down he is doing well and can go to [facility] rehab when he desires has some clear serosanguineous drainage from the BKA stump the stump looks good with no sign of infection.
[2017-03-21] MEDS: ROSUVASTATIN 20 MG TABLET PO SCH (20:21)
[2017-03-21] MEDS: ZALEPLON 5 MG CAPSULE PO PRN (20:22)
[2017-03-21] MEDS: ATORVASTATIN 40 MG TABLET PO SCH (20:22)
[2017-03-22] MEDS: ASPIRIN CHEW 81 MG TABLET PO SCH (09:01)
[2017-03-22] MEDS: CILOSTAZOL 50 MG TABLET PO SCH (09:01)
[2017-03-22] MEDS: PANTOPRAZOLE 40 MG TABLET PO SCH (09:01)
[2017-03-22] MEDS: amLODIPine 10 MG TABLET PO SCH (09:01)
--- NOTE | 2017-03-22 11:21 | Discharge Summary ---
Hospital Course - Hospital Course Hospital Course: Albert Mojica was admitted with ischemic rest pain extremely poor perfusion of his left lower extremity and a nonhealing ulcer we attempted endovascular approaches for revascularization and none were feasible there was no reasonable hope of surgical intervention for revascularization. He underwent a left below- knee amputation late last week had fever over the weekend but on review of the wound there is no active infection there fever has resolved he is doing well with initial rehab. He is ready for transfer to [facility] and continues rehabilitation and plan for a prosthesis in the future. I discussed with Mr. Mojica and his sister on several occasions the long-term plan potential complications and that I would continue to follow him at time [facility]. Understanding is that they are ready for him to transfer today. Diagnosis - Discharge Diagnosis (1) Ischemic rest pain of lower extremity Status: Acute Discharge Plan - Discharge Data Disposition: Disch/Xfer-Ip Rehab Fac Condition at Discharge: Stable Discharge Diet: advance to your usual diet Activity: as per physical therapy Hygiene: may shower Weight Bearing at Discharge: weight bear as tolerated Driving: not until seen by doctor Contact your physician if you experience:: fever over 101, Redness or swelling, Bleeding - Discharge Medications New Aspirin Chew Tab 81 mg PO DAILY tablet Bisacodyl Tab [Dulcolax Tab] 10 mg PO Q4H PRN tablet PRN Reason: Constipation HYDROcodone/ACETAMIN 7.5-325 [[place] 7.5-325] 2 tablet PO Q6H PRN tablet PRN Reason: Pain Moderate (4-7) HYDROcodone/ACETAMIN 7.5-325 [[place] 7.5-325] 1 tablet PO Q4H PRN tablet PRN Reason: Pain Moderate To Severe (4-10) HYDROmorphone INJ [Dilaudid Inj] 0.5 mg IV Q2H PRN vial PRN Reason: Pain Severe (8-10) Pantoprazole Tab [Protonix Tab] 40 mg PO DAILY tablet Rosuvastatin [Crestor] 40 mg PO BEDTIME tablet Zaleplon [Sonata] 10 mg PO BEDTIME PRN capsule PRN Reason: Sleep diphenhydrAMINE CAP [Benadryl Cap] 25 mg PO Q4H PRN capsule PRN Reason: Itching Ondansetron Inj [Zofran Inj] 4 mg IV Q4H PRN vial PRN Reason: Nausea/Vomiting Continue hydroCHLOROthiazide [Hydrochlorothiazide] 25 mg PO DAILY Cilostazol [Pletal] 50 mg PO BID Atorvastatin [Lipitor] 40 mg PO BEDTIME amLODIPine [Norvasc] 10 mg PO DAILY HYDROcodone/ACETAMIN 7.5-325 [[place] 7.5-325] 1 tablet PO Q6HR PRN PRN Reason: Pain - Follow Up or Referral - Forms/Instructions Exam - Constitutional Vitals: Period Temp Pulse Resp BP Sys/Luu Pulse Ox Last 24 Hr 97.6 F-99.1 F 92-104 18-20 111-132/65-84 97-100 Discharge Results Procedures and tests throughout hospitalization: Pending Orders 03/20/17 11:33 Blood Culture Routine Labs on day of discharge: Preliminary micro results at discharge 03/20/17 11:33 Blood Culture - Preliminary Blood No growth at 1 day 03/20/17 11:33 Blood Culture - Preliminary Blood No growth at 1 day DS: Provider Date of admission: 03/15/17 14:51 Primary care physician: Rody Millan Attending physician on admission: John Menchaca MD Consults: 03/13/17 12:32 Consult to Dietitian [CONS] Routine Reason for Dietitian: Dietary Consult 03/17/17 10:22 Consult to Case Mgmt/Social Srvs [CONS] Routine Reason for Case Mgmt/Social Srvs: Discharge Planning Rehab Consult to Physical Therapy [CONS] Routine Reason for Physical Therapy: Evaluate and Treat 03/17/17 10:25 Consult to Physician [CONS] Routine Comment: manage post op pain/epidural Consulting Provider: Consult to Specialist Group: Anesthesiology Discharging clinician: John Menchaca MD
[2017-03-22 11:31] VITALS: BP 118/76
--- NOTE | 2017-03-29 07:06 | Physician Query Form ---
CLICK EDIT DOCUMENT TO SELECT QUERY ANSWER --> OK --> SIGN Riri Perkins RN, CCDS Certified Clinical Fleet [employer] W) [phone] (f) [phone] [email or web address]: Make your selection(s) from the choices in EACH section by typing an "x" and enter comments in the comment section. Please use your independent medical judgment in providing your response. This request does not imply that any particular answer is desired or expected. CLINICAL INDICATORS: (Providers should not edit this section) The medical record indicates that the patient was admitted with PAD, "Critical limb ischemia with left distal SFA/popliteal occlusion and very poor runoff with suggestion of diffuse severe tibial disease". As the attending MD can you please clarify the most likely cause of the occlusion? Based on the above, could you clarify the appropriate diagnosis, if significant , that supports the above abnormalities and additional evaluation, monitoring, and/or treatment rendered: ( ) Aortitis ( ) Dissection ( ) Embolic ( ) Necrosis ( ) Thrombotic (x ) Other, please specify:atherosclerotic peripheral vascular disease ( ) Clinically unable to determine COMMENTS: PLEASE ALSO DOCUMENT RESPONSE IN PROGRESS NOTES AND/OR DISCHARGE SUMMARY Use of terms such as suspected, likely, or probable (associated with a specific diagnosis that is being evaluated, monitored, or treated as if it exists) are acceptable and can be restated in the discharge summary if not ruled out. MTDD
== END 2017-03-22 15:12 | DRG 305 ==
LOC: N.RAD 07:20 → N.SDSINP 07:21 → N.3E 12:10
PROVIDERS: ADMIT Surgery; ATTEND Surgery

== ENCOUNTER 2020-04-20 09:41 | Observation (INO) ==
[2020-04-20 11:22] LABS: Bilirubin,Total 0.7 MG/DL (0.2-1.0); Calcium 9.4 MG/DL (8.5-10.1); Osmolality,Calculated 268.2 MOS/KG (273-304); Total Protein 7.7 G/DL (6.4-8.3)
[2020-04-20] MEDS ORDERED: SODIUM CHLORIDE 0.9% 1,000 ML IV STA (11:32)
[2020-04-20 12:12] LABS: Basophils # 0.1 10*3/uL (0.0-0.2); Basophils % 0.7 % (0.0-0.8); Hematocrit 35.2 VOL% (42.0-52.0); Hemoglobin 12.5 GM/DL (14.0-18.0); Immature Granulocytes % 3.9 %; Lymphocytes # 1.6 10*3/uL (1.4-4.0); Lymphocytes % 21.4 % (21.2-54.2); Mean Corpuscular HGB Conc 35.5 GM/DL (32-36); Mean Corpuscular Volume 73.6 FL (87-102); Monocytes % 10.1 % (1.7-12.7); Neutrophils % 63.9 % (38.7-73.9); Platelet Count 134 T/CUMM (130-400); Red Blood Count 4.78 MC/CUMM (3.8-5.5); Red Cell Distribution Width 16.4 % (9.3-17.3); White Blood Count 7.6 T/CUMM (4-12)
[2020-04-20 12:19] LABS: Bacteria,Urine Occasional /HPF (Few); Bilirubin,Urine Negative (Negative); Blood, Urine Small mg/dL (Negative); Glucose,Urine (UA) 50 mg/dL (Negative); Hyaline Casts,Urine 5 /LPF (0-3); Ketones,Urine 5 mg/dL (Negative); Mucus,Urine Occasional /LPF (Occasional); Nitrite,Urine Negative (Negative); Protein,Urine 100 MG/DL; RBC,Urine 2 /HPF (0-4); Squamous Epithelial Cell,Urine Occasional /HPF (0-10); Urine Appearance CLEAR (Clear); Urine Color Yellow (Yellow); Urine Specific Gravity 1.011 (1.001-1.035); Urine Urobilinogen < 2.0 EU/DL (0.2-1.0); WBC,Urine 4 /HPF (0-6)
[2020-04-20 12:23] LABS: Barbiturates Screen,Urine Negative (Negative); Benzodiazepines Screen,Urine Negative (Negative); Cannabinoid Screen,Urine Positive (Negative); Opiate Screen,Urine Negative (Negative); Phencyclidine Screen,Urine Negative (Negative)
[2020-04-20] MEDS ORDERED: MAGNESIUM SULF RIDER 4 GM in PREMIX 1 EACH IV STA (12:25)
[2020-04-20] MEDS ORDERED: MAGNESIUM SULF RIDER 50 ML IV ONE ×2 (12:36→12:54)
[2020-04-20] MEDS ORDERED: hydrALAZINE 20 MG/1 ML VIAL IV PRN (13:53)
[2020-04-20] MEDS ORDERED: MAGNESIUM SULF RIDER 2 GM in PREMIX 1 EACH IV PRN (13:53)
[2020-04-20] MEDS ORDERED: GLUCAGON 1 MG VIAL IM PRN (13:53)
[2020-04-20] MEDS ORDERED: DEXTROSE 50% 25 GM/50 ML VIAL IV PRN (13:53)
[2020-04-20] MEDS ORDERED: MAGNESIUM SULF RIDER 4 GM in PREMIX 1 EACH IV PRN (13:53)
[2020-04-20] MEDS ORDERED: ACETAMINOPHEN 325 MG TABLET PO PRN (13:53)
[2020-04-20] MEDS ORDERED: ONDANSETRON 4 MG/2 ML VIAL IV PRN (13:53)
[2020-04-20 15:15] LABS: PT Patient Result 10.6 SECS (9.8-11.9); Partial Thromboplastin Time 28.6 SECS (23.9-33.8)
[2020-04-20 15:28] LABS: Risk Ratio 1.67; Thyroid Stimulating Hormone 0.533 uIU/ml (0.358-3.74); VLDL CHOLESTEROL 12.4 MG/DL
[2020-04-20 15:30] LABS: Folate 8.4 NG/ML (5.4-24.0)
[2020-04-20] MEDS: chlordiazePOXIDE 25 MG CAPSULE PO SCH ×2 (17:44→20:45)
[2020-04-20] MEDS: ENOXAPARIN 40 MG/0.4 ML SYRINGE SUBCUT SCH (17:44)
[2020-04-20] MEDS: MULTIVITAMIN (CENTRUM) TABLET PO SCH (17:44)
[2020-04-20] MEDS: THIAMINE 100 MG TABLET PO SCH (17:44)
[2020-04-20] MEDS: FOLIC ACID 1 MG TABLET PO SCH (17:44)
[2020-04-20] MEDS: SODIUM CHLORIDE 0.9% 1,000 ML IV SCH (17:50)
[2020-04-20] MEDS: ATORVASTATIN 40 MG TABLET PO SCH (20:44)
[2020-04-21] MEDS: SODIUM CHLORIDE 0.9% 1,000 ML IV SCH ×4 (00:11→23:11)
[2020-04-21 05:35] LABS: Basophils % 0.3 % (0.0-0.8); Hematocrit 30.8 VOL% (42.0-52.0); Hemoglobin 11.1 GM/DL (14.0-18.0); Immature Granulocytes % 0.3 %; Immature Granulocytes Absolute 0.03 #; Lymphocytes # 1.4 10*3/uL (1.4-4.0); Mean Corpuscular Volume 73.5 FL (87-102); Neutrophils % 80.4 % (38.7-73.9); Platelet Count 112 T/CUMM (130-400); Red Blood Count 4.19 MC/CUMM (3.8-5.5); Red Cell Distribution Width 16.3 % (9.3-17.3); White Blood Count 11.1 T/CUMM (4-12)
[2020-04-21 05:54] LABS: Albumin 3.1 G/DL (3.4-5.0); Bilirubin,Total 0.8 MG/DL (0.2-1.0); Calcium 8.3 MG/DL (8.5-10.1); Osmolality,Calculated 266.1 MOS/KG (273-304); Total Protein 6.6 G/DL (6.4-8.3)
[2020-04-21 06:10] LABS: Band Neutrophils 2 % (0-10); Hypochromasia 1+; Lymphocytes 16 % (20-55); Platelet Estimate Decreased; Segmented Neutrophils 78 % (50-85); Target Cells Few; Total Cells Counted 100
[2020-04-21] MEDS ORDERED: POTASSIUM CHLORIDE 20 MEQ TABLET PO ONE (07:48)
[2020-04-21 08:52] LABS: % Iron Saturation 6.8 % (18-50); Ferritin 747.8 ng/ml (26-388)
[2020-04-21] MEDS: ASPIRIN CHEW 81 MG TABLET PO SCH (09:31)
[2020-04-21] MEDS: hydroCHLOROthiazide 12.5 MG CAPSULE PO SCH (09:32)
[2020-04-21] MEDS: chlordiazePOXIDE 25 MG CAPSULE PO SCH ×3 (09:32→21:15)
[2020-04-21] MEDS: THIAMINE 100 MG TABLET PO SCH (09:32)
[2020-04-21] MEDS: amLODIPine 10 MG TABLET PO SCH (09:32)
[2020-04-21] MEDS: MULTIVITAMIN (CENTRUM) TABLET PO SCH (09:32)
[2020-04-21] MEDS: PANTOPRAZOLE 40 MG TABLET PO SCH (09:32)
[2020-04-21] MEDS: FOLIC ACID 1 MG TABLET PO SCH (09:32)
[2020-04-21 10:49] LABS: Troponin I < 0.015 NG/ML (0.00-0.045)
[2020-04-21] MEDS: ENOXAPARIN 40 MG/0.4 ML SYRINGE SUBCUT SCH (16:58)
[2020-04-21] MEDS: FERRIC GLUCONATE COMPLEX 125 MG in SODIUM CHLORIDE 0.9% 100 ML IV SCH (16:58)
[2020-04-21] MEDS: levETIRAcetam 500 MG TABLET PO SCH (21:15)
[2020-04-21] MEDS: ATORVASTATIN 40 MG TABLET PO SCH (21:15)
[2020-04-22 05:41] LABS: Basophils % 0.5 % (0.0-0.8); Eosinophils # 0.2 10*3/uL (0.0-0.87); Eosinophils % 2.3 % (0.00-10.9); Hematocrit 28.7 VOL% (42.0-52.0); Immature Granulocytes % 0.5 %; Immature Granulocytes Absolute 0.04 #; Lymphocytes # 1.8 10*3/uL (1.4-4.0); Lymphocytes % 23.8 % (21.2-54.2); Mean Corpuscular HGB Conc 34.8 GM/DL (32-36); Mean Corpuscular Volume 74.5 FL (87-102); Monocytes % 13.7 % (1.7-12.7); Neutrophils % 59.2 % (38.7-73.9); Red Blood Count 3.85 MC/CUMM (3.8-5.5); Red Cell Distribution Width 16.6 % (9.3-17.3); White Blood Count 7.4 T/CUMM (4-12)
[2020-04-22 05:48] LABS: Platelet Count 94 T/CUMM (130-400)
[2020-04-22 06:00] LABS: Hypochromasia 2+
[2020-04-22 06:01] LABS: Anisocytosis 1+; Target Cells Few
[2020-04-22 06:02] LABS: Macrocytosis 1+; Platelet Estimate Decreased
[2020-04-22] MEDS: SODIUM CHLORIDE 0.9% 1,000 ML IV SCH (07:56)
[2020-04-22 08:00] VITALS: BP 133/92
[2020-04-22] MEDS: FOLIC ACID 1 MG TABLET PO SCH (08:31)
[2020-04-22] MEDS: MULTIVITAMIN (CENTRUM) TABLET PO SCH (08:31)
[2020-04-22] MEDS: hydroCHLOROthiazide 12.5 MG CAPSULE PO SCH (08:31)
[2020-04-22] MEDS: levETIRAcetam 500 MG TABLET PO SCH (08:31)
[2020-04-22] MEDS: ASPIRIN CHEW 81 MG TABLET PO SCH (08:31)
[2020-04-22] MEDS: chlordiazePOXIDE 25 MG CAPSULE PO SCH (08:31)
[2020-04-22] MEDS: THIAMINE 100 MG TABLET PO SCH (08:32)
[2020-04-22] MEDS: amLODIPine 10 MG TABLET PO SCH (08:32)
[2020-04-22] MEDS: PANTOPRAZOLE 40 MG TABLET PO SCH (08:32)
[2020-04-22] MEDS: FERRIC GLUCONATE COMPLEX 125 MG in SODIUM CHLORIDE 0.9% 100 ML IV SCH (10:02)
[2020-04-22] MEDS ORDERED: POTASSIUM CHLORIDE 20 MEQ TABLET PO ONE (10:09)
== END 2020-04-22 11:55 | disposition home or self-care (01) ==
LOC: EDUNIT# → EDBD → N.ED 09:41 → N.EDINP 09:41 → N.TELES 14:33
PROVIDERS: ADMIT Internal Medicine; ATTEND Internal Medicine